=== PATIENT | male | born 1970 | race Caucasian/White ===

== ENCOUNTER 2019-01-04 16:32 | Emergency (ER) | payer SELFPAY ==
[~2019-01-04] VITALS: Ht 190.5 cm; Wt 73.9 kg
[2019-01-04 16:35] VITALS: Ht 190.5 cm; Wt 73.9 kg
[2019-01-04 18:12] VITALS: BP 142/81
== END 2019-01-04 18:12 | disposition home or self-care (01) ==
LOC: ED 16:32
DX: R10.13 Epigastric pain (principal); R11.2 Nausea with vomiting, unspecified
CPT/HCPCS: J1885; Q0162

== ENCOUNTER 2019-03-22 02:45 | Inpatient (IN) | payer MEDICAID ==
[~2019-03-22] VITALS: Ht 188 cm; Wt 73.7 kg
[2019-03-22 02:57] VITALS: Ht 188 cm; Wt 73.7 kg
--- NOTE | 2019-03-22 03:31 | NUR ---
PT. PRESENT TO THE ER C/O ABDOMINAL PAIN 04/18, EPIGASTRIC REGION, WITH N/V X 1 DAYS, CHILLS, DENIES FEVER, PT. DENIES SOB, DENIES CHEST PAIN, DENIES URINARY ISSUES, PT. LAYING IN BED, AAOX4, NO ACUTE DISTRESS, STATES," I DONT FEEL WELL.' NEW ORDERS OBTAINED, DR. MORIN MSE, WILL MONITOR. REPOSITIONED PT. FOR COMFORT.
--- NOTE | 2019-03-22 03:42 | NUR ---
MEDICATED PT. PER DRSerafin ORDER, PT. TOLERATED WELL, SEE EMAR
[2019-03-22 04:00] LABS: PLATELET COUNT 192 x10^3mcL (130-400); RED CELL DISTRIBUTION WIDTH 14.1 % (11.5-14.5)
[2019-03-22 04:01] LABS: CALCIUM 8.4 mg/dL (8.5-10.1); CARBON DIOXIDE 26.9 mmol/L (21-32); CHLORIDE SERUM 106 mmol/L (98-107); CREATININE SERUM 1.2 mg/dL (0.7-1.3); GFR1 > 60 mL/min; GLUCOSE SERUM 115 mg/dL (74-106); POTASSIUM SERUM 3.3 mmol/L (3.5-5.1); SODIUM SERUM 142 mmol/L (136-145)
[2019-03-22 04:05] LABS: ALBUMIN 3.6 g/dL (3.4-5.0); ALKALINE PHOSPHATASE 93 U/L (46-116); ALT/SGPT 13 U/L (16-63); AMYLASE 76 U/L (25-115); AST/SGOT 12 U/L (15-37); BILIRUBIN TOTAL 0.56 mg/dL (0.20-1.00); LIPASE 413 IU/L (73-393); TOTAL PROTEIN, SERUM 6.8 g/dL (6.4-8.2)
[2019-03-22 04:35] LABS: BAND NEUTROPHIL 7 % (0-10); MONOCYTE 5 % (0-7); SEGMENTED NEUTROPHILS 78 % (37-75)
[2019-03-22 04:36] LABS: PLATELET MORPHOLOGY PLATELETS NORMAL; rbc morphology (normal/abnorm) NORMAL (NORMAL)
--- NOTE | 2019-03-22 05:58 | NUR ---
PT C/O 9/[address] PAIN AT THIS TIME[address] MORIN AWARE.
--- NOTE | 2019-03-22 06:51 | NUR ---
PT TRANSFERRED TO [facility] BY WHEELCHAIR BY [facility] EMT. PT ACCEPTED BY RACHANA MCGINNIS TO ASSUME PT CARE. PT AOX4, RESP EVEN AND UNLABORED, NO ACUTE DISTRESS NOTED. PT AMBULATED WITH STEADY GAIT FROM WHEELCHAIR TO BED.
[2019-03-22 07:09] VITALS: BP 127/73
[2019-03-22 07:30] LABS: CHOLESTEROL/HDL RATIO 4.9; MAGNESIUM 1.8 mg/dL (1.8-2.4); T3 TOTAL 0.96 ng/mL
[2019-03-22 07:38] LABS: FREE T4 1.26 ng/dL (0.76-1.46); FREE THYROXINE INDEX 3.7 ug/dL (1.4-4.5); T4(THYROXINE) 10.4 ug/dL (4.7-13.3)
--- NOTE | 2019-03-22 07:45 | NUR ---
PATIENT RECEIVED ALERT AND ORIENTED TIMES FOUR. PATIENT WITH DIMINISHED BREATH SOUNDS AND BOWEL SOUNDS ACTIVE. PATIENT HAS BEEN WITH PAIN DUE TO ACUTE APPENDICITIS SINCE YESTERDAY AND HAS BEEN NPO FOR SURGERY PLANNED TODAY. PATIENT HAS FLAT ABDOMEN AND PULSES PALPABLE TO ALL EXTREMITES. PATIENT HAS SOME SCRATCHES TO THE HANDS BUT OTHERWISE INTACT SKIN. VITALS AT THIS TIME AT97.5, 131/76, 45, 16, 98%. REQUESTED PAIN MEDICATION AND GAVE DILAUDID ORDERED. PATIENT SIGNED CONSENT AND CHECKLIST COMPLETED. REPORT GIVEN TO THE OR STAFF AND PATIENT IS TO BE TAKEN TO OR. PATIENT HAS NOTED LABS OF WBC AT 21.9, POTASSIUM AT 3.3, PHOS AT 2.0, AND CA AT 8.4. EVAN HAS RECEIVED FLUIDS IN THE ER IV IV AND HAS NOTED HISTORY OF ANXIETY AND THIS WAS ADVISED TO THE OR CREW HE HAS SOME CLAUSTRAPHOBIA AND WANTS TO BE "OUT" BEFORE HE GETS STRAPPED DOWN TO THE OR TABLE. PATIENT WENT DOWN FOR PROCEDURE AT 0745 AND WILL AWAIT ARRIVAL BACK TO THE FLOOR POST OPERATIVE.
--- NOTE | 2019-03-22 13:33 | NUR ---
PATIENT RETURNED FROM OR AND TOLERATED THE TRANSFER WELL. PATIENT HAS ZOSYN HUNG AND IV FLUIDS. PATIENT OFFERED DIET AND GAVE THE PROTONIX AND THE COLACE ORERED. SEEN BY THT RESIDENT AND MOTHER AT BEDSIDE AND SUPPORTIVE WITH CARE.
--- NOTE | 2019-03-22 14:35 | NUR ---
RESTING QUIETLY AT THIS TIME. MOTHER AT BEDSIDE. WILL CONTINUE TO MONITOR
--- NOTE | 2019-03-22 15:28 | NUR ---
TOOK PATIENT TO RESTROOM AND WAS ABLE TO TOLERATE AND URINATED ADEQUATELY. BACK IN BED AND NO COMPLAINTS OF PAIN AT THIS TIME./
[2019-03-22 17:26] VITALS: BP 111/68
--- NOTE | 2019-03-22 18:31 | NUR ---
NO COMPLAINTS OF PAIN AT THIS TIME. TOLERATEDD THE CLEAR LIQUID DIET AND OOB WELL. GAVE THE TWO ANTIBIOTICS AND NO ADVERSE REACTION NOTEDD.
--- NOTE | 2019-03-22 19:10 | NUR ---
REPORT RECEIVED FROM DAY SHIFT RN. PATIENT WAS SEEN AND IS RESTING COMFORTABLY IN BED. NO DISTRESS NOTED. BREATHING EVEN AND UNLABORED ON ROOM AIR. NO SOB OR RESP DISTRESS NOTED. NO C/O PAIN. DENIES CHEST PAIN/PRESSURE. IV TO THE RAC INFUSING WELL. PATENT AND INTACT. NO REDNESS OR SWELLING NOTED. ABD INCISION X3 W/ DERMABOND. NO DRAINAGE NOTED. DENIES N/V. COMFORT AND SAFETY MEASURES IN PLACE. BED IS LOCKED AND IN THE LOWEST POSITION. SIDE RAILS UP X2. CALL LIGHT IS WITHIN REACH. WILL CONTINUE TO MONITOR.
--- NOTE | 2019-03-22 20:00 | NUR ---
UA COLLECTED. PATIENT WAS MEDICATED WITH DILAUDID PRIOR IN SURGERY.
[2019-03-22 21:39] VITALS: BP 113/64
--- NOTE | 2019-03-22 22:35 | NUR ---
PATIENT CALLED REPORTING MAGGIE IS NOT WORKING AND STIL CANNOT SLEEP. DR ADAM CALLED AND IS AWARE. AWAITING NEW ORDERS.
[2019-03-22 22:47] LABS: microscopic required? NO
[2019-03-22 22:51] LABS: UA SPECIFIC GRAVITY <=1.005 (1.005-1.035); urine erythrocyte NEGATIVE (NEGATIVE)
[2019-03-22 23:00] LABS: AMPHETAMINE QUAL UR NONE DETECTED (See below)
--- NOTE | 2019-03-22 23:12 | NUR ---
PATIENT IS STILL AWAKE. IV BENEDRYL GIVEN FOR INSOMNIA PER ORDER. EDUCATED PATIENT ON MED. VERBALIZED UNDERSTANDING. NO DISTRESS NOTED. NO C/O PAIN. ON C/O ABD DISCOMFORT. BREATHING EVEN AND UNLABORED ON ROOM AIR. SAFETY MEASURES IN PLACE. CALL LIGHT IS WITHIN REACH. WILL CONTINUE TO MONITOR.
--- NOTE | 2019-03-23 00:37 | NUR ---
PATIENT AWAKE IN BED. STILL C/O INSOMNIA. PATIENT STATED HE WILL CLOSE HIS EYES AND TRY TO SLEEP. NO DISTRESS NOTED. BREWATHING EVEN AND UNLABORED. NO C/O PAIN. IV INFUSING WELL. SAFETY MEASURES IN PLACE. CALL LIGHT IS WITHIN REACH. WILL CONTINUE TO MONITOR.
--- NOTE | 2019-03-23 02:03 | NUR ---
REPORTED K 3.[address]
--- NOTE | 2019-03-23 02:40 | NUR ---
RESTING IN BED. AWAKE. REPORTED ONLY SLEPT FOR ABOUT 15MINS. NO DISTRESS NOTED. BREATHING EVEN AND UNLABORED. NO SOB. NO C/O PAIN. SAFETY MEASURES IN PLACE. CALL LIGHT IS WITHIN REACH. WILL CONTINUE TO MONITOR.
[2019-03-23 05:41] VITALS: BP 105/69
[2019-03-23 05:55] LABS: BASOPHIL % 0.2 % (0-2); PLATELET COUNT 164 x10^3mcL (130-400); RED CELL DISTRIBUTION WIDTH 14.5 % (11.5-14.5)
[2019-03-23 06:12] LABS: CALCIUM 8.2 mg/dL (8.5-10.1); CARBON DIOXIDE 26.5 mmol/L (21-32); CHLORIDE SERUM 108 mmol/L (98-107); CREATININE SERUM 0.9 mg/dL (0.7-1.3); GFR1 > 60 mL/min; GLUCOSE SERUM 101 mg/dL (74-106); POTASSIUM SERUM 4.4 mmol/L (3.5-5.1); SODIUM SERUM 143 mmol/L (136-145)
--- NOTE | 2019-03-23 06:13 | NUR ---
AWAKE THROUGH MOST OF THE NIGHT. AMBIEN AND BENEDRYL WAS NOT EFFECTIVE. NO DISTRESS NOTED. BREATHING EVEN AND UNLABORED ON ROOM AIR. NO SOB OR RESP DISTRESS NOTED. NO C/O PAIN, ONLY ABD DISCOMFORT. IV TO THE RAC INFUSING WELL. PATENT AND INTACT. NO REDNESS OR SWELLING NOTED. ABD INCISION X3 W/ DERMABOND. NO BM. SAFETY MEASURES IN PLACE. CALL LIGHT IN PLACE. WILL ENDORSE CARE TO DAY SHIFT RN.
[2019-03-23 06:23] LABS: MAGNESIUM 1.8 mg/dL (1.8-2.4); PHOSPHOROUS 3.1 mg/dL (2.5-4.9)
[2019-03-23 08:33] VITALS: BP 114/59
--- NOTE | 2019-03-23 10:24 | NUR ---
GAVE THE PATIENT DILAIDD ORDERED AND NO FURTHER COMPLAINS OF PAIN AT THIS TIME.
--- NOTE | 2019-03-23 10:36 | NUR ---
PATIENT KEEPS COMPLAINING OF NOT BEING ABLE TO SLEEP AND IS AGITATED MROE THAN ANXIOUS ABOUT THIS NOW. HE DOES NOT WANT ANYONE COMING IN THE ROOM OR BOTHERING HIM. HE STATES HE IS GOING CRAZY IN THE HOSPITAL. PATIENT NEVA BEE NOTED TO STATE ON ADMIT HE GETS ANXIOUS AND CLAUSTRAPHOBIC. THIS GOES FURTHER THAN CLAUSTROPHOBIA THOUGH. HE WAS UP ALL NIGHT WANTING MEDICATION TO PUT HIM TO SLEEP AND WANTED TO BE KNOCKED OUT PRIOR TO BEING ON THE OR TABLE HE STATES HE GOES NUTS AND CAN NOT HANDLE BEING STRAPPED DONW. PATIENT FREDS BEEN GIVEN DILAUDID AND HAD BENADRYL AND AMBIEN LAST NIGHT BUT DOES NOT APPERA TO HAVE ANY AFFECT. PATIENT GOT UP TO THE STATION AND STATES HE IS TIRED OF PEOPLE COMING IN AND OUT OF THE ROOM EVERY FIFTEEN MINUTES. A SIGN WAS PLACED ON THE DOOR AND WILL CALL THE [employer] FOR ORDERS FOR POSSIBLE DISCHARGE THE PATIENT MEET ST CRITERIA OF PASSING GAS, URINATING AND AMBULATIOH. HE MAY DO BETTER AT HOME DUE TO HIS ISSUES HERE.
--- NOTE | 2019-03-23 10:45 | NUR ---
CALLED [facility] FOR ORDERS AND REMINDED HE WILL NEED TO WAIT TO BE CLEARED BY SURGERY FOR DISCHARGE. PATIENT IN THE MEANTIME IS ANXIOUS AND WALKGIN THE HALLWAY. DIET TO BE ADVANCE PER THE INLETTER.
--- NOTE | 2019-03-23 11:41 | NUR ---
CALLED [facility] FOR ORDERS FOR DISCHARGE PER DR BUNDY. SHE REDIRRECTED THE MEDICATIONS GIVEDN HERE AREA ONLY IV. SPOKE WITH NURSE IN OR THAT RELAYED [facility] MESSAGE AND DR DOMINGUEZ ORDERED AUGMENTIN TIMES FIVE DAYS AND COLACE AND PAIN MEDICATION.
--- NOTE | 2019-03-23 11:42 | NUR ---
CALLED [facility] BACK WITH INSTRUCTIONS AND AWAITING ORDERS TO BE PROCESSED.
[2019-03-23] MEDS ORDERED: APAP/HYDROCODON1 T13 PO (12:42)
[2019-03-23] MEDS ORDERED: AUG500 PO (12:44)
[2019-03-23] MEDS ORDERED: COLACE100 MG PO (12:49)
[2019-03-23 12:50] VITALS: BP 114/59
--- NOTE | 2019-03-23 14:35 | NUR ---
DISCHARGED TO HOME POST RECEIVING THE IV ANTIBIOTICS AND TO FOLLOW UP WITH [facility] AND SURGEON INDICATED. NO DISTRESS AT TIME OF DISCHARGE.
== END 2019-03-23 14:37 | disposition home or self-care (01) | DRG 234 ==
LOC: ED 02:45 → MU 06:02
PROVIDERS: Emergency Medicine; Surgery; ADMIT Internal Medicine
PROC: 0DTJ4ZZ Resection of Appendix, Percutaneous Endoscopic Approach (ICD-10-PCS; principal; 2019-03-22 08:30)
DX: K35.80 Unspecified acute appendicitis (principal); E83.39 Other disorders of phosphorus metabolism; E83.51 Hypocalcemia; E87.6 Hypokalemia; F17.210 Nicotine dependence, cigarettes, uncomplicated; F12.10 Cannabis abuse, uncomplicated; Z68.21 Body mass index [BMI] 21.0-21.9, adult
CPT/HCPCS: 83880; 84439; 94150; C9113; G0378; J0330; J0694; J1170; J1200; J1885; J2405; J2543; J2704; J2710; J3010; J3490; J7030; J7120; Q0092; Q0162

== ENCOUNTER 2020-02-11 08:13 | Emergency (ER) | payer OTHER ==
[~2020-02-11] VITALS: Ht 190.5 cm; Wt 73.0 kg
[~2020-02-11 08:13] MED LIST: APAP/HYDROCODON1 T13 PO; AUG500 PO; COLACE100 MG PO
[2020-02-11 08:23] VITALS: BP 100/53; Ht 190.5 cm; Wt 73.0 kg
== END 2020-02-11 10:22 | disposition home or self-care (01) ==
LOC: ED 08:13
DX: M54.5 Low back pain (principal)
CPT/HCPCS: Q0092